=== PATIENT | male | born 1980 | race Caucasian/White ===

== ENCOUNTER 2016-10-26 12:04 | Emergency (ER) | payer OTHER ==
[2016-10-26 12:09] VITALS: BP 147/102; BMI 20.5
--- NOTE | 2016-10-26 12:30 | DR.GENAD ---
HPI - PCP Primary Care Physician: NFD - Complaint/Symptoms Chief Complaint Doctors Comments: Patients family states that he was in his usual state of health on last night and this morning he had dysarthria. His family member reports that he and his girlfriend got into an argument on last night and this AM he has problems with speach. Chief Complaint:: PATIENT STATED HE WOKE UP AROUND 9 AM AND HAD PROBLEMS TALKING. - Source History Provided: Patient - Mode of Arrival Mode of Arrival: Ambulatory - Timing Onset of Chief Complaint: 10/26/16 PMH - PMH Past Medical History: No Past Surgical History: No - Family History History of Family Medical Conditions: No - Social History Does patient currently use any type of tobacco product: Yes Have you used tobacco products in the last 12 months: Yes Type of Tobacco Use: Cigarettes How many years tobacco product used: 20 Does any household member use tobacco: No Alcohol Use: Occasionally Do you use any recreational Drugs:: Yes (THC) Lives With: Family Lives Where: Home - infectious screening In the last 2 months have you had wt loss of >10#?: NO Have you had fever, night sweats or hemotysis?: No Have you traveled outside the country in the last 6 months?: No Isolation: Standard ROS - Review of Systems Eyes: No Symptoms Reported ENTM: No Symptoms Reported Respiratoy: No Symptoms Reported Cardiovascular: No Symptoms Reported Gastrointestinal/Abdominal: No Symptoms Reported Genitourinary: No Symptoms Reported Neurological: Speech Problem Musculoskeletal: No Symptoms Reported Integumentary: No Symptoms Reported Hematologic/Lymphatic: No Symptoms Reported Endocrine: No Symptoms Reported Psychiatric: No Symptoms Reported All Other Systems: Reviewed and Negative PE - Vital Signs Vitals: Temperature 98.6 F Pulse Rate 78 Respiratory Rate 16 Blood Pressure 147/102 O2 Sat by Pulse Oximetry 100 - General Limitations: No Limitations General Appearance: Alert, In No Apparent Distress - Head Head Exam: Normal Inspection, Atraumatic - Eyes Eye exam: Normal Appearance, PERRL, EOMI - ENT ENT Exam: Normal Exam External Ear Exam: Normal External Inspection TM/Canal Exam: Bilateral Normal Nose Exam: Normal Nose Exam Mouth Exam: Normal Inspection - Neck Neck Exam: Normal Inspection - Chest Chest Inspection: Normal Inspection - Respiratory Respiratory Exam: Normal Lung Sounds Bilat Respiratory Exam: Bilateral Clear to Auscultation - Cardiovascular Cardiovascular Exam: Regular Rate, Normal Rhythm - Abdominal Exam Abdominal Exam: Normal Inspection, Normal Bowel Sounds Abdominal Tenderness: negative: RUQ, RLQ, LUQ, LLQ, Epigastrium, Suprapubic, Diffuse, Mild, Moderate, Severe, Other - Extremities Extremities Exam: Normal Inspection, Full ROM - Back Back Exam: Normal Inspection, Full ROM - Neurologic Neurological Exam: Alert, Oriented X3, CN II-XII Intact Course - Treatment Treatment: Patient was advised to diagnosis Polycythemia and dysarthria, wanted to do MRI/MRA and treat polychthemia--patient decided not to be admitted and signed out AMA - Consultation Called: 14:10 (Dr Gonzalez returned call [phone]; agreed to admit for further evaluation ) ROR - Labs Reviewed Result Diagrams: 10/26/16 12:36 10/26/16 12:36 Laboratory: WBC 5.7 X10^3/uL (3.6-10.0) 10/26/16 12:36 RBC 5.89 X10^6/uL (4.7-6.0) 10/26/16 12:36 Hgb 20.7 g/dL (13.5-18.0) H* 10/26/16 12:36 Hct 60.1 % (42.0-54.0) H* 10/26/16 12:36 MCV 102.1 fL (80.0-100.0) H 10/26/16 12:36 MCH 35.2 pg (27.0-34.0) H 10/26/16 12:36 MCHC 34.5 g/dL (33.0-35.0) 10/26/16 12:36 RDW 14.1 % (11.6-16.5) 10/26/16 12:36 Plt Count 176 X10^3/uL (150.0-450.0) 10/26/16 12:36 Plt Count Comment Adequate (ADEQUATE) 10/26/16 12:36 MPV 9.3 fL (7.4-11.0) 10/26/16 12:36 Neut % 64.3 % (42.0-75.0) 10/26/16 12:36 Lymph % 24.6 % (21.0-51.0) 10/26/16 12:36 [place] % 9.8 % (0.0-13.0) 10/26/16 12:36 Eos % 0.8 % (0.9-2.9) L 10/26/16 12:36 Baso % 0.5 % (0.2-1.0) 10/26/16 12:36 Neut # 3.7 x10^3/uL (2.2-4.8) 10/26/16 12:36 Lymph # 1.4 X10^3/uL (1.3-2.9) 10/26/16 12:36 [place] # 0.6 x10^3/uL (0.3-0.8) 10/26/16 12:36 Eos # 0.0 x10^3/uL (0.0-0.2) 10/26/16 12:36 Baso # 0.0 X10^3/uL (0.0-0.1) 10/26/16 12:36 Absolute Nucleated RBC 0.2 /100WBC 10/26/16 12:36 Plt Morphology Comment Normal (NORMAL) 10/26/16 12:36 RBC Morphology Abnormal (NORMAL) 10/26/16 12:36 Macrocytosis 1+ A 10/26/16 12:36 INR Target Range - 10/26/16 12:36 INR 0.93 (0.8-1.3) 10/26/16 12:36 Sodium 140 mmol/L (136-145) 10/26/16 12:36 Corrected Sodium TNP 10/26/16 12:36 Potassium 4.6 mmol/L (3.5-5.1) 10/26/16 12:36 Chloride 105 mmol/L (98-107) 10/26/16 12:36 Carbon Dioxide 33.8 mmol/L (21-32) H 10/26/16 12:36 BUN 7 mg/dL (7-18) 10/26/16 12:36 Creatinine 0.82 mg/dL (0.70-1.30) 10/26/16 12:36 Est GFR (MDRD) Af Amer > 60 (>60) 10/26/16 12:36 Est GFR (MDRD) Non-Af > 60 (>60) 10/26/16 12:36 Glucose 91 mg/dL (65-99) 10/26/16 12:36 Calcium 9.1 mg/dL (8.5-10.1) 10/26/16 12:36 Corrected Calcium TNP 10/26/16 12:36 Total Bilirubin 0.50 mg/dL (0.2-1.0) 10/26/16 12:36 AST 35 Units/L (15-37) 10/26/16 12:36 ALT 43 Units/L (12-78) 10/26/16 12:36 Alkaline Phosphatase 106 Units/L (46-116) 10/26/16 12:36 Total Protein 8.2 g/dL (6.4-8.2) 10/26/16 12:36 Albumin 3.8 g/dL (3.4-5.0) 10/26/16 12:36 Globulin 4.4 g/dL (2.5-4.5) 10/26/16 12:36 Albumin/Globulin Ratio 0.9 Ratio (1.1-2.1) L 10/26/16 12:36 Specimen Type Clean catch urine 10/26/16 13:19 Urine Color Yellow (YELLOW) 10/26/16 13:19 Urine Appearance Clear (CLEAR) 10/26/16 13:19 Urine pH 8.0 (5.0 - 8.0) 10/26/16 13:19 Ur Specific [place] 1.010 (1.000-1.030) 10/26/16 13:19 Urine Protein Negative (NEGATIVE) 10/26/16 13:19 Urine Glucose (UA) Negative (NEGATIVE) 10/26/16 13:19 Urine Ketones Negative (NEGATIVE) 10/26/16 13:19 Urine Occult Blood Negative (NEGATIVE) 10/26/16 13:19 Urine Nitrite Negative (NEGATIVE) 10/26/16 13:19 Urine Bilirubin Negative (NEGATIVE) 10/26/16 13:19 Urine Urobilinogen Normal (NORMAL) 10/26/16 13:19 Ur Leukocyte Esterase Negative (NEGATIVE) 10/26/16 13:19 Urine RBC None seen /HPF (NEGATIVE) 10/26/16 13:19 Urine WBC None seen /HPF (NEGATIVE) 10/26/16 13:19 Ur Squamous Epith Cells Few /HPF (NEGATIVE) 10/26/16 13:19 Amorphous Sediment Trace /HPF (NEGATIVE) 10/26/16 13:19 Urine Bacteria Negative /HPF (NEGATIVE) 10/26/16 13:19 Ur Culture Indicated? No/not indicated 10/26/16 13:19 Blood Opiate Screen Cancelled 10/26/16 12:36 Urine Opiates Screen Negative (NEG=<300) 10/26/16 13:19 Blood Methadone Screen Cancelled 10/26/16 12:36 Urine Methadone Screen Negative (NEG=<300) 10/26/16 13:19 Bld Propoxyphene Scrn Cancelled 10/26/16 12:36 Bld Barbiturates Scrn Cancelled 10/26/16 12:36 Ur Barbiturates Screen Negative (NEG=<200) 10/26/16 13:19 Bld Phencyclidine Scrn Cancelled 10/26/16 12:36 Ur Phencyclidine Scrn Negative (NEG=<25) 10/26/16 13:19 Bld Amphetamines Scrn Cancelled 10/26/16 12:36 Ur Amphetamines Screen Negative (NEG=<1000) 10/26/16 13:19 Bl Benzodiazepine Scrn Cancelled 10/26/16 12:36 U Benzodiazepines Scrn Negative (NEG=<200) 10/26/16 13:19 Bld Cocaine/Metab Scrn Cancelled 10/26/16 12:36 Urine Cocaine Screen Negative (NEG=<300) 10/26/16 13:19 Bld Cannabinoid Screen Cancelled 10/26/16 12:36 U Marijuana (THC) Screen Positive (NEG=<50) A 10/26/16 13:19 Drug Screen Comment Cancelled 10/26/16 12:36 Alcohol, Quantitative Cancelled 10/26/16 12:36 - Diagnosis Discharge Problem: Polycythemia, Dysarthria - Discharge Plan Condition: Stable - Follow ups/Referrals Follow ups/Referrals: NFD,None [Primary Care Provider] - 3 days - Instructions
--- NOTE | 2016-10-26 12:38 | CT ---
HISTORY: Speech difficulty Study: CT brain without contrast Comparison: None Technique: Multiple axial images of the brain were obtained from the skull base to the vertex without administr ation of IV contrast. Coronal and sagittal reformats were performed. Dose reduction procedures were use with MA/kv adjusted for body size. Findings: No acute intraparenchymal hemorrhage or mass can be identified. No extra-axial fluid collections ar e seen. No alteration in the attenuation of the brain parenchyma can be identified to suggest acute or subacute ischemic change. The ventricular system is symmetric and nondilated. The extracranial structures are grossly unremarkable. IMPRESSION: No significant abnormality identified Reported By:
[2016-10-26] MEDS ORDERED: DILAUDID INJ ONE (12:48)
[2016-10-26 12:57] LABS: ALANINE AMINOTRANSFERASE 43 Units/L (12-78); ALBUMIN 3.8 g/dL (3.4-5.0); ALKALINE PHOSPHATASE 106 Units/L (46-116); ASPARTATE AMINO TRANSFERASE 35 Units/L (15-37); BLOOD UREA NITROGEN 7 mg/dL (7-18); CALCIUM 9.1 mg/dL (8.5-10.1); CARBON DIOXIDE 33.8 mmol/L (21-32); CHLORIDE 105 mmol/L (98-107); CREATININE 0.82 mg/dL (0.70-1.30); GLUCOSE 91 mg/dL (65-99); SODIUM 140 mmol/L (136-145); TOTAL PROTEIN 8.2 g/dL (6.4-8.2); eGFR BLACK RACES > 60 (>60); eGFR NON BLACK RACES > 60 (>60)
[2016-10-26 13:11] LABS: BASOPHILS % (AUTO) 0.5 % (0.2-1.0); EOSINOPHILS % (AUTO) 0.8 % (0.9-2.9); LYMPHOCYTES # (AUTO) 1.4 X10^3/uL (1.3-2.9); LYMPHOCYTES % (AUTO) 24.6 % (21.0-51.0); MEAN CORPUSCULAR HEMOGLOBIN 35.2 pg (27.0-34.0); MEAN CORPUSCULAR HGB CONC 34.5 g/dL (33.0-35.0); MEAN CORPUSCULAR VOLUME 102.1 fL (80.0-100.0); MEAN PLATELET VOLUME 9.3 fL (7.4-11.0); MONOCYTES # (AUTO) 0.6 x10^3/uL (0.3-0.8); MONOCYTES % (AUTO) 9.8 % (0.0-13.0); NEUTROPHILS # (AUTO) 3.7 x10^3/uL (2.2-4.8); NEUTROPHILS % (AUTO) 64.3 % (42.0-75.0); PLATELET COUNT 176 X10^3/uL (150.0-450.0); RED BLOOD COUNT 5.89 X10^6/uL (4.7-6.0); RED CELL DISTRIBUTION WIDTH 14.1 % (11.6-16.5); WHITE BLOOD COUNT 5.7 X10^3/uL (3.6-10.0)
[2016-10-26 13:19] LABS: HEMOGLOBIN 20.7 g/dL (13.5-18.0)
[2016-10-26 13:20] LABS: HEMATOCRIT 60.1 % (42.0-54.0)
[2016-10-26 13:29] LABS: BILIRUBIN,URINE NEGATIVE (NEGATIVE); BLOOD/HEMOGLOBIN,URINE NEGATIVE (NEGATIVE); GLUCOSE, URINE NEGATIVE (NEGATIVE); KETONES,URINE NEGATIVE (NEGATIVE); LEUKOCYTE ESTERASE ,URINE NEGATIVE (NEGATIVE); NITRITES,URINE NEGATIVE (NEGATIVE); PROTEIN,URINE NEGATIVE (NEGATIVE); UROBILINOGEN,URINE NORMAL (NORMAL)
[2016-10-26 13:41] LABS: AMORPHOUS SEDIMENT,UR TRACE /HPF (NEGATIVE); APPEARANCE,URINE CLEAR (CLEAR); BACTERIA,URINE NEGATIVE /HPF (NEGATIVE); COLOR,URINE YELLOW (YELLOW); RBC,URINE NONE SEEN /HPF (NEGATIVE); SQUAMOUS EPITHELIAL CELL,UR FEW /HPF (NEGATIVE)
[2016-10-26 13:53] LABS: PLATELET MORPHOLOGY COMMENT NORMAL (NORMAL)
== END 2016-10-26 14:32 | disposition left against medical advice (07) ==
LOC: ER 12:14
DX: D75.1 Secondary polycythemia (principal); R47.1 Dysarthria and anarthria
CPT/HCPCS: 36415; 70450; 80053; 80307; 81001; 85025; 85610; 99283; G0434

== ENCOUNTER 2017-02-24 10:20 | Emergency (ER) | payer OTHER, MEDICAID ==
[2017-02-24 10:27] VITALS: BP 135/97; BMI 20.6
[2017-02-24] MEDS ORDERED: TORADOL 60 MG VIAL ONE (10:42)
[2017-02-24] MEDS ORDERED: TORADOL 60 MG VIAL IM ONE (10:43)
--- NOTE | 2017-02-24 10:44 | DR.GENAD ---
HPI - PCP Primary Care Physician: NFD - Complaint/Symptoms Chief Complaint:: "Yesterday I was cutting some trees about 15 foot in the air and I fell off. I landed on my ankle and then fell back on my back. My left ankle is swollen and I can't bear weight on it. My back is hurting really bad in the middle of my lower back." - Source History Provided: Patient - Mode of Arrival Mode of Arrival: Wheelchair - Timing Onset of Chief Complaint: 02/23/17 PMH - PMH Past Medical History: Yes Past Medical History: Hypertension Past Surgical History: Yes Surgical History: Other Past Surgical History Comment: Hernia repair - Family History History of Family Medical Conditions: Yes Family Medical History: Cancer, [place], Hypertension - Social History Does patient currently use any type of tobacco product: No Have you used tobacco products in the last 12 months: No Type of Tobacco Use: Cigarettes Does any household member use tobacco: Yes Alcohol Use: Heavy Do you use any recreational Drugs:: No Lives With: Family Lives Where: Home - infectious screening In the last 2 months have you had wt loss of >10#?: NO Have you had fever, night sweats or hemotysis?: No Have you traveled outside the country in the last 6 months?: No Isolation: Standard ROS - Review of Systems Eyes: No Symptoms Reported ENTM: No Symptoms Reported Respiratoy: No Symptoms Reported Cardiovascular: No Symptoms Reported Gastrointestinal/Abdominal: No Symptoms Reported Genitourinary: No Symptoms Reported Neurological: No Symptoms Reported Musculoskeletal: Back Pain (lumbar), Left, Ankle (swollen, pain) Integumentary: No Symptoms Reported Hematologic/Lymphatic: No Symptoms Reported Endocrine: No Symptoms Reported Psychiatric: No Symptoms Reported All Other Systems: Reviewed and Negative PE - Vital Signs Vitals: Temperature 97.7 F Pulse Rate 90 Respiratory Rate 18 Blood Pressure 135/97 O2 Sat by Pulse Oximetry 97 - General General Appearance: Alert, In Distress - Head Head Exam: Normal Inspection, Atraumatic - Eyes Eye exam: Normal Appearance, PERRL, EOMI - ENT ENT Exam: Normal Exam External Ear Exam: Normal External Inspection TM/Canal Exam: Bilateral Normal Nose Exam: Normal Nose Exam Mouth Exam: Normal Inspection Throat Exam: Normal Inspection - Neck Neck Exam: Normal Inspection - Chest Chest Inspection: Normal Inspection - Respiratory Respiratory Exam: Normal Lung Sounds Bilat Respiratory Exam: Bilateral Clear to Auscultation - Cardiovascular Cardiovascular Exam: Regular Rate, Normal Rhythm - Abdominal Exam Abdominal Exam: Normal Inspection, Normal Bowel Sounds Abdominal Tenderness: negative: RUQ, RLQ, LUQ, LLQ, Epigastrium, Suprapubic, Diffuse, Mild, Moderate, Severe, Other - Extremities Extremities Exam: Joint Swelling (left ankle) - Back Back Exam: Normal Inspection, Tenderness (lumbar area) - Neurologic Neurological Exam: Alert, Oriented X3, CN II-XII Intact - Psychiatric Psychiatric Exam: Normal Affect - Skin Skin Exam: Warm, Dry, Intact Course - Reevaluation 1st: Improved ROR - XRAY XRAY Interpreted by: Radiologist (CT Lumbar: Straightening of the lumbar lordosis is imaged. Acute superior endplate compression fracture T12 with approximate 25% height loss. Remaining vertebral body heights are preserved. Significant loss of disc space L5-S1 with vacuum disc phenomenon. Remaining disc heights are preserved. Seton anterolisthesis L5 on S1 secondary to bilateral pars defects. There is no evidence of significant neural forminal stenosis of central canal compromise. Impression: Acute superior endplate compression fracture T12 with approximately 25% height loss. Bilateral pars defects L5 with similar anterolisthesis L5 on S1 and loss of disc space.) - Diagnosis Discharge Problem: Compression fracture of T12 vertebra, bilateral pars defect L5, Acute endplante compression fracture T12 Moderate left ankle sprain Qualifiers: Encounter type: initial encounter Qualified Code(s): S93.402A - Sprain of unspecified ligament of left ankle, initial encounter - Discharge Plan Condition: Stable - Follow ups/Referrals Follow ups/Referrals: NFD,None [Primary Care Provider] - 3 days - Instructions
--- NOTE | 2017-02-24 11:16 | CT ---
CT LUMBAR SPINE WITHOUT CLINICAL HISTORY: 36-year-old male status post fall from ladder. COMPARISON: None. TECHNIQUE: Multiple, noncontrasted axial CT images were obtained from the thoracolumbar junction to the sacrum and reconstructed in the sagittal and coronal planes. FINDINGS: Straightening of the lumbar lordosis is imaged. Acute superior endplate compression fractur e T12 with approximate 25% height loss. Remaining vertebral body heights are preserved. Significant l oss of disc space L5-S1 with vacuum disc phenomenon. Remaining disc heights are preserved. Seton ante rolisthesis L5 on S1 secondary to bilateral pars defects. There is no evidence of significant neural foraminal stenosis or central canal compromise. No significant central canal or neural foraminal stenosis. IMPRESSION: 1. Acute superior endplate compression fracture T12 with approximately 25% height loss. 2. Bilateral pars defects L5 with similar anterolisthesis L5 on S1 and loss of disc space. Reported By:
--- NOTE | 2017-02-24 12:22 | RAD ---
Left ankle, three views Indication: Fall with ankle pain Comparison: None Findings: There is mild soft tissue swelling of the lateral ankle. No acute fracture or malalignment is identified. The ankle mortise is symmetric and the syndesmosis is intact. Joint spaces are preserv ed without appreciable arthropathy. Impression: Soft tissue swelling of the lateral ankle without acute osseous abnormality. Reported By:
== END 2017-02-24 12:33 | disposition home or self-care (01) ==
LOC: ER 10:32
DX: S22.080A Wedge compression fracture of T11-T12 vertebra, initial encounter for closed fracture (principal); S93.402A Sprain of unspecified ligament of left ankle, initial encounter; M43.06 Spondylolysis, lumbar region; W19.XXXA Unspecified fall, initial encounter; Y92.9 Unspecified place or not applicable
CPT/HCPCS: 72131; 73610; 99282; J1885

== ENCOUNTER → 2017-05-22 | Outpatient (CLI) | payer OTHER, MEDICAID ==
--- NOTE | 2017-05-22 19:40 | RAD ---
. Examination: Lumbar spine, five views History: Low back pain Findings: There is a minimal S shaped biphasic scoliosis. No acute fracture is seen. There is timo brenda deformity of T12 which does not appear acute. Pars defects are present at L5 with 1st degree L5- S1 spondylolisthesis. There is disc narrowing at this interspace. Impression: 1. Compression deformity superior endplate of T12 which does not appear acute. This was described on Previous lumbar spine CT of 02/24/2017. 2. Bilateral L5 spondylolysis with L5-S1 spondylolisthesis. Reported By:
== END ==
LOC: RAD 14:02
PROVIDERS: ATTEND Orthopaedic Surgery
DX: M54.5 Low back pain (principal); M51.84 Other intervertebral disc disorders, thoracic region
CPT/HCPCS: 72110